=== PATIENT | female | born 1945 | race Two or more races ===

== ENCOUNTER 2018-05-29 06:00 | Day surgery (SDC) | payer OTHER ==
[~2018-05-29 06:00] MED LIST: ALLOPURINOL300 MG; ASA81 MG PO; CARVEDILOL12.5 MG PO; CLONAZEPAM0.5 MG PO; DOLOGEN CAPLET1 EACH PO; ENTRESTO 24 MG1 EACH PO; GABAPENTIN100 MG PO; JANUVIA25 MG PO; LIPO-FLAVONOID1 EACH PO; NEXIUM 24HR20 M1 PO; NORVASC5 MG PO; PRAVASTATIN SOD40 MG PO; WELLBUTRIN XL150 M1 PO
== END 2018-05-29 10:10 | disposition home or self-care (01) ==
LOC: CIR.AMB 06:00
DX: G56.01 Carpal tunnel syndrome, right upper limb (principal)

== ENCOUNTER 2018-10-02 05:30 | Day surgery (SDC) | payer OTHER ==
[~2018-10-02 05:30] MED LIST changes: +GLIMEPIRIDE2 MG PO
== END 2018-10-02 10:05 | disposition home or self-care (01) ==
LOC: CIR.AMB 05:30
DX: G56.02 Carpal tunnel syndrome, left upper limb (principal)

== ENCOUNTER 2019-07-30 06:05 | Day surgery (SDC) | payer OTHER | END 2019-07-30 18:00 | disposition home or self-care (01) | LOC: CIR.AMB 06:05 → ADM 10:45 → CIR.AMB 10:45 | PROVIDERS: ATTEND Orthopaedic Surgery Hand Surgery | DX: M19.042 Primary osteoarthritis, left hand (principal) ==